=== PATIENT | female | born 1930 | race Caucasian/White ===

== ENCOUNTER 2017-04-14 06:07 | Emergency (ER) | payer MEDICARE ==
[~2017-04-14] VITALS: Ht 157.5 cm; Wt 62.0 kg
[~2017-04-14 06:07] MED LIST: ATOR10TA PO; ECOT81TA2 PO; LISI-357 PO; METO25CR PO
[2017-04-14 06:10] VITALS: BP 191/96; PULSE 100; RESP 20; TEMP 96.3; O2SAT 97
--- NOTE | 2017-04-14 06:22 | PD ---
HPI Chief Complaint: Fall Time Seen by Provider: 06:13 Travel History International Travel<30 days: No Contact w/Intl Traveler<30days: No Traveled to known affect area: No History of Present Illness HPI Patient is an 86-year-old female presents emergency department for evaluation after a fall. Patient brought in by EMS on a scoop stretcher, according to EMS the patient's son whom the patient lives with at home reported that the patient rolled out of bed and hit her head on the nightstand, unknown loss of consciousness. The patient has a history of Alzheimer's dementia extremely limiting history. PFSH Past Medical History Arthritis: Yes Asthma: No Blood Disorders: No Heart Rhythm Problems: No Cancer: No Cardiovascular Problems: Yes High Cholesterol: Yes Chemotherapy: No Chest Pain: Yes Congestive Heart Failure: Yes COPD: No Cerebrovascular Accident: Yes (ALSO BELLS PALSEY) Diabetes: No Endocrine: No Gastrointestinal Disorders: No Genitourinary: No Headaches: Yes Hypertension: Yes Immune Disorder: No Implanted Vascular Access Dvce: No Kidney Stones: No Musculoskeletal: Yes Neurologic: Yes (CVA, JOE'S PALSY) Psychiatric: No Reproductive: Yes (HYSTERECTOMY, X 2) Respiratory: No Immunizations Current: Yes Migraines: Yes Myocardial Infarction: No Radiation Therapy: No Renal Failure: No Seizures: No Sleep Apnea: Yes Thyroid Disease: No ?: Not Past Surgical History Abdominal Surgery: Yes (HERNIA SURGERY) AICD: No Cardiac Surgery: No Ear Surgery: No Endocrine Surgery: No Eye Surgery: No Genitourinary Surgery: No Gynecologic Surgery: Yes (HYSTERCTOMY AND 2 C SECTIONS) Joint Replacement: No Neurologic Surgery: No Oral Surgery: No Pacemaker: No Thoracic Surgery: No Other Surgery: Yes Social History Alcohol Use: No Tobacco Use: No Substance Use: No Allergies-Medications (Allergen,Severity, Reaction): Coded Allergies: No Known Allergies (Verified , 04/16/17) Reported Meds & Prescriptions Reported Meds & Active Scripts Active Tylenol-Codeine #3 (Acetaminophen-Codeine) 300-30 mg Tab 1 Tab PO Q4H PRN Reported Aspirin 81 Mg Chew 81 Mg CHEW DAILY Review of Systems ROS Limitations: Other: (dementia) Physical Exam Narrative GENERAL: Well-developed well-nourished, bloody pajama top and bloody hair on the left side of her face. SKIN: Laceration as below, there is some healing bruising to the left breast. HEAD: No george signs no raccoons eyes, 1-2 cm laceration superficial over the left forehead, no active bleeding.. Normocephalic. EYES: Pupils equal and round. No scleral icterus. No injection or drainage. ENT: No nasal bleeding or discharge. Mucous membranes pink and moist. NECK: Trachea midline. No JVD. CARDIOVASCULAR: Regular rate and rhythm. No murmur appreciated. RESPIRATORY: No accessory muscle use. Clear to auscultation. Breath sounds equal bilaterally. GASTROINTESTINAL: Abdomen soft, non-tender, nondistended. Hepatic and splenic margins not palpable. MUSCULOSKELETAL: No midline CT or L-spine tenderness, minimal tenderness left hip. Pelvis stable. Extremities appear atraumatic. No obvious deformities. No clubbing. No cyanosis. No edema. NEUROLOGICAL: Awake and alert. No obvious cranial nerve deficits. Moves all 4 extremities but does not follow commands. Able to communicate that it hurts when I touch her left hip. PSYCHIATRIC: Demented. Data Data Last Documented VS Vital Signs Date Time Temp Pulse Resp B/P Pulse Ox O2 Delivery O2 Flow Rate FiO2 04/14/17 14:13 78 20 136/75 04/14/17 06:[address] Brain W/O Iv Contrast(Rout) (04/14/17 ) Ct Cerv Spine W/O Contrast (04/14/17 ) Hip, Uni(Ap&Lat) W Ap Pelvis (04/14/17 ) Chest, Single Ap (04/14/17 ) MDM Medical Decision Making Medical Screen Exam Complete: Yes Emergency Medical Condition: Yes Differential Diagnosis Fall, closed head injury, neck injury, intracranial hematoma, hip injury, chest injury. Narrative Course Patient roomed in ER, xray workup ordered. Discussed with Dr. Thompson at 0700 shift change to follow up images and disposition appropriately. Scripts Acetaminophen-Codeine (Tylenol-Codeine #3)300-30 mg Tab1 Tab PO Q4H PRN (PAIN) # 15 TAB Ref 0 Prov:Latia Thompson MD 04/14/17 Dexter Christensen MD Apr 14, 2017 06:22
[2017-04-14] MEDS ORDERED: ASPI81CH CHEW (06:23)
--- NOTE | 2017-04-14 06:54 | RADRPT ---
EXAM DATE/TIME: 04/14/2017 06:31 [facility] COMPARISON: CHEST SINGLE AP, July 21, 2016, 18:58. INDICATIONS : Fall. Left chest pain. MEDICAL HISTORY : None. SURGICAL HISTORY : None. ENCOUNTER: Initial ACUITY: 1 day PAIN SCORE: 5/10 LOCATION: Bilateral chest FINDINGS: A single view of the chest demonstrates the lungs to be symmetrically aerated with punctate old granu lomatous calcifications bilaterally. No confluent infiltrate. Multiple lateral left sided rib fractur es. Heart size is borderline prominent but well compensated. Right humeral head is "high riding" characteristic of a chronic rotator cuff injury. There appears to be chronic dislocation of the left shoulder. CONCLUSION: 1. Multiple left-sided lateral rib fractures in the lower hemithorax. No acute infiltrate or pneumoth orax. 2. Old granulomatous disease bilaterally. 3. Probable chronic rotator cuff injury of the right shoulder. Chronic dislocation of the left should er. Chava Dumont MD on April 14, 2017 at 6:48 Board Certified Radiologist. This report was verified electronically.
--- NOTE | 2017-04-14 06:55 | RADRPT ---
EXAM DATE/TIME: 04/14/2017 06:32 [facility] COMPARISON: No previous studies available for comparison. INDICATIONS : Fall. Left hip pain. MEDICAL HISTORY : None. SURGICAL HISTORY : None. ENCOUNTER: Initial ACUITY: 1 day PAIN SCORE: 8/10 LOCATION: Left pelvis FINDINGS: Examination of the left hip was performed with AP Pelvis. The primary and secondary trabecular patte rn of the femoral neck is intact. The hip joint is of normal width without significant sclerosis or bony hypertrophy. The acetabulum is grossly intact. Extensive granulomatous type calcification of th e regional vasculature. CONCLUSION: 1. No acute fracture. 2. Extensive granulomatous type calcification of the regional vasculature. Chava Dumont MD on April 14, 2017 at 6:53 Board Certified Radiologist. This report was verified electronically.
--- NOTE | 2017-04-14 06:58 | RADRPT ---
EXAM DATE/TIME: 04/14/2017 06:39 [facility] COMPARISON: CT BRAIN W/O CONTRAST, February 25, 2016, 1:18. INDICATIONS : Trauma, fall. RADIATION DOSE: 29.55 CTDIvol (mGy) MEDICAL HISTORY : Non-responsive. SURGICAL HISTORY : Non-responsive. ENCOUNTER: Initial ACUITY: 1 day PAIN SCALE: Non-responsive LOCATION: cranial TECHNIQUE: Multiple contiguous axial images were obtained of the head. Using automated exposure control and adj ustment of the mA and/or kV according to patient size, radiation dose was kept as low as reasonably a chievable to obtain optimal diagnostic quality images. DICOM format image data is available electro nically for review and comparison. FINDINGS: CEREBRUM: Severe but stable central and cortical atrophy. Periventricular attenuation is characteristic of mode rately severe small vessel ischemic demyelination. Old lacunar type infarct in the right thalamus. No thing acute. POSTERIOR FOSSA: The cerebellum and brainstem are intact. The 4th ventricle is midline. The cerebellopontine angle i s unremarkable. EXTRACRANIAL: The visualized portion of the orbits is intact. SKULL: The calvaria is intact. No evidence of skull fracture. Small cephalhematoma over the left frontopari etal region. CONCLUSION: 1. Small cephalhematoma over the left frontoparietal region. No fracture. 2. Stable chronic changes with cortical and central atrophy, periventricular small vessel ischemic de myelination and old right thalamic lacunar type infarct. Chava Dumont MD on April 14, 2017 at 6:54 Board Certified Radiologist. This report was verified electronically.
--- NOTE | 2017-04-14 07:12 | RADRPT ---
EXAM DATE/TIME: 04/14/2017 06:39 [facility] COMPARISON: No previous studies available for comparison. INDICATIONS : Trauma, fall. RADIATION DOSE: 12.64 CTDIvol (mGy) MEDICAL HISTORY : Non-responsive. SURGICAL HISTORY : Non-responsive. ENCOUNTER: Initial ACUITY: 1 day PAIN SCALE: Non-responsive LOCATION: neck TECHNIQUE: Volumetric scanning of the cervical spine was performed. Multiplanar reconstructions in the sagittal, coronal and oblique axial planes were performed. Using automated exposure control and adjustment o f the mA and/or kV according to patient size, radiation dose was kept as low as reasonably achievable to obtain optimal diagnostic quality images. DICOM format image data is available electronically f or review and comparison. FINDINGS: VERTEBRAE: Normal vertebral body height. Moderate intervertebral disc space narrowing at C4-5, C5-6 and C6-7. De generative facet disease mid cervical spine. ALIGNMENT: No evidence of subluxation. C2-C3: The bony spinal canal is normal in size. No evidence of disc bulge or herniation. The neural forami na are bilaterally patent. C3-C4: The bony spinal canal is normal in size. No evidence of disc bulge or herniation. The neural forami na are bilaterally patent. C4-C5: The bony spinal canal is normal in size. No evidence of disc bulge or herniation. The neural forami na are bilaterally patent. C5-C6: The bony spinal canal is normal in size. No evidence of disc bulge or herniation. The neural forami na are bilaterally patent. C6-C7: The bony spinal canal is normal in size. No evidence of disc bulge or herniation. The neural forami na are bilaterally patent. C7-T1: The bony spinal canal is normal in size. No evidence of disc bulge or herniation. The neural forami na are bilaterally patent. CONCLUSION: Degenerative disc and facet disease throughout the mid cervical spine. No evidence of endplate fractu re is identified. Cord is normal in shape. Baldo Camarena MD on April 14, 2017 at 7:07 Board Certified Radiologist. This report was verified electronically.
--- NOTE | 2017-04-14 07:24 | PD ---
Physical Exam Date Seen by Provider: Apr 14, 2017 Time Seen by Provider: 07:10 Narrative Care assumed from Dr. Christensen at 7 AM pending radiographic studies. Patient has a 2 cm laceration on the left side of her forehead. She is awake and alert but confused. She has no idea why she is here. Her lungs have good air movement throughout. Data Data Last Documented VS Vital Signs Date Time Temp Pulse Resp B/P Pulse Ox O2 Delivery O2 Flow Rate FiO2 04/14/17 06:10 96.3 100 20 191/[address] Brain W/O Iv Contrast(Rout) (04/14/17 ) Ct Cerv Spine W/O Contrast (04/14/17 ) Hip, Uni(Ap&Lat) W Ap Pelvis (04/14/17 ) Chest, Single Ap (04/14/17 ) MDM Supervised Visit with EDEN: No Narrative Course Last Impressions Hip and Pelvis X-Ray 04/14/17 0000 Signed Impressions: Service Date/Time: Friday, April 14, 2017 06:32 - CONCLUSION: 1. No acute fracture. 2. Extensive granulomatous type calcification of the regional vasculature. Chava Dumont MD Head CT 04/14/17 0000 Signed Impressions: Service Date/Time: Friday, April 14, 2017 06:39 - CONCLUSION: 1. Small cephalhematoma over the left frontoparietal region. No fracture. 2. Stable chronic changes with cortical and central atrophy, periventricular small vessel ischemic demyelination and old right thalamic lacunar type infarct. Chava Dumont MD Chest X-Ray 04/14/17 0000 Signed Impressions: Service Date/Time: Friday, April 14, 2017 06:31 - CONCLUSION: 1. Multiple left-sided lateral rib fractures in the lower hemithorax. No acute infiltrate or pneumothorax. 2. Old granulomatous disease bilaterally. 3. Probable chronic rotator cuff injury of the right shoulder. Chronic dislocation of the left shoulder. Chava Dumont MD Cervical Spine CT 04/14/17 0000 Signed Impressions: Service Date/Time: Friday, April 14, 2017 06:39 - CONCLUSION: Degenerative disc and facet disease throughout the mid cervical spine. No evidence of endplate fracture is identified. Cord is normal in shape. Baldo Camarena MD This patient presumably has acute left rib fractures. She does not appear to be having any respiratory distress related to rib fractures. It appeared to be too terribly uncomfortable. Procedures Procedure Narrative LACERATION LOCATION: Forehead LENGTH: 2 cm NUMBER OF STITCHES/ROSA MARIA: 3 Steri-Strips REPAIR: The area of the laceration was prepped with saline. The wound was copiously irrigated and explored without evidence of foreign body, tendon injury or neurovascular injury. The wound was closed using Steri-Strips. Patient tolerated the procedure well. Diagnosis Primary Impression: Forehead laceration Qualified Code: S01.81XA - Forehead laceration, initial encounter Additional Impressions: Scalp contusion Left rib fracture Qualified Code: S22.42XA - Closed fracture of multiple ribs of left side, initial encounter Patient Instructions: Facial Laceration (ED), General Instructions, Rib Fracture (DC) Scripts Acetaminophen-Codeine (Tylenol-Codeine #3)300-30 mg Tab1 Tab PO Q4H PRN (PAIN) # 15 TAB Ref 0 Prov:Latia Thompson MD 04/14/17 Disposition: 01 DISCHARGE HOME Condition: Stable Latia Thompson MD Apr 14, 2017 07:24
[2017-04-14] MEDS ORDERED: TYLETAB34 PO (07:29)
[2017-04-14 14:13] VITALS: BP 136/75
== END 2017-04-14 14:14 | disposition home or self-care (01) ==
LOC: NEPC 06:07
DX: S01.81XA Laceration without foreign body of other part of head, initial encounter (principal); S22.42XA Multiple fractures of ribs, left side, initial encounter for closed fracture; W06.XXXA Fall from bed, initial encounter; E78.00 Pure hypercholesterolemia, unspecified; I50.9 Heart failure, unspecified; Z86.73 Personal history of transient ischemic attack (TIA), and cerebral infarction without residual deficits; I11.0 Hypertensive heart disease with heart failure; G47.30 Sleep apnea, unspecified; G30.9 Alzheimer's disease, unspecified; F02.80 Dementia in other diseases classified elsewhere, unspecified severity, without behavioral disturbance, psychotic disturbance, mood disturbance, and anxiety
CPT/HCPCS: 70450; 71010; 72125; 73502; 99284

== ENCOUNTER 2017-04-16 18:53 | Emergency (ER) | payer MEDICARE ==
[~2017-04-16] VITALS: Ht 157.5 cm; Wt 60.0 kg
[~2017-04-16 18:53] MED LIST changes: +ASPI81CH CHEW; -ATOR10TA PO; -ECOT81TA2 PO; -LISI-357 PO; -METO25CR PO; +TYLETAB34 PO
[2017-04-16 19:20] VITALS: BP 141/89; PULSE 67; RESP 18; TEMP 98.2; O2SAT 100
--- NOTE | 2017-04-16 19:26 | PD ---
HPI Chief Complaint: Pain: Acute or Chronic Time Seen by Provider: 19:26 Travel History International Travel<30 days: No Contact w/Intl Traveler<30days: No Traveled to known affect area: No History of Present Illness HPI 86-year-old female with history of CAD, hypertension, dementia, CVA, presents to emergency department for evaluation of persistent thoracic spine pain. Patient had a fall 2 days ago. She was seen and evaluated in the emergency department. She was diagnosed with full left lateral rib fractures. Patient was discharged home. Patient presents today for persistent pain stating that it is in her back. Denies any new injury. No chest or tightness. No difficulty breathing. Pain does not radiate anywhere. No other symptoms to report. PFSH Past Medical History Alzheimer's Disease: Yes (PER EMS) Arthritis: Yes Asthma: No Blood Disorders: No Heart Rhythm Problems: No Cancer: No Cardiovascular Problems: Yes High Cholesterol: Yes Chemotherapy: No Chest Pain: Yes Congestive Heart Failure: Yes COPD: No Cerebrovascular Accident: Yes (ALSO BELLS PALSEY) Dementia: Yes (PER EMS) Diabetes: No Diminished Hearing: Yes ([place]) Endocrine: No Gastrointestinal Disorders: No Genitourinary: No Headaches: Yes Hypertension: Yes Immune Disorder: No Implanted Vascular Access Dvce: No Kidney Stones: No Musculoskeletal: Yes (HX LOWER BACK PAIN PER EMS) Neurologic: Yes (CVA, JOE'S PALSY) Psychiatric: No Reproductive: Yes (HYSTERECTOMY, X 2) Respiratory: No Immunizations Current: Yes Migraines: Yes Myocardial Infarction: No Radiation Therapy: No Renal Failure: No Seizures: No Sleep Apnea: Yes Thyroid Disease: No Past Surgical History Abdominal Surgery: Yes (HERNIA SURGERY) AICD: No Cardiac Surgery: No Ear Surgery: No Endocrine Surgery: No Eye Surgery: No Genitourinary Surgery: No Gynecologic Surgery: Yes (HYSTERCTOMY AND 2 C SECTIONS) Joint Replacement: No Neurologic Surgery: No Oral Surgery: No Pacemaker: No Thoracic Surgery: No Other Surgery: Yes Social History Alcohol Use: No (UNABLE TO ASSESS) Tobacco Use: No (UNABLE TO ASSESS) Substance Use: No (UNABLE TO ASSESS) Allergies-Medications (Allergen,Severity, Reaction): Coded Allergies: No Known Allergies (Verified , 04/16/17) Reported Meds & Prescriptions Reported Meds & Active Scripts Active Tylenol-Codeine #3 (Acetaminophen-Codeine) 300-30 mg Tab 1 Tab PO Q4H PRN Reported Aspirin 81 Mg Chew 81 Mg CHEW DAILY Review of Systems ROS Limitations: Poor Historian Except as stated in HPI: all other systems reviewed are Neg Physical Exam Exam Limitations: Poor Historian Narrative GENERAL: Thin elderly female patient, hard of hearing, poor historian, pleasant , in no acute distress SKIN: Focused skin assessment warm/dry. HEAD: Ecchymosis, scalp hematoma in the left forehead. Normocephalic. EYES: Pupils equal and round. No scleral icterus. No injection or drainage. ENT: No nasal bleeding or discharge. Mucous membranes pink and moist. NECK: Trachea midline. No JVD. No cervical spine tenderness. CARDIOVASCULAR: Regular rate and rhythm. RESPIRATORY: No accessory muscle use. Diminished, likely due to poor inspiratory effort. Breath sounds equal bilaterally. GASTROINTESTINAL: Abdomen soft, non-tender, nondistended. Hepatic and splenic margins not palpable. MUSCULOSKELETAL: No obvious deformities. No clubbing. No cyanosis. No edema. Tenderness elicited to palpation of the distal thoracic spine. NEUROLOGICAL: Awake and alert. No obvious cranial nerve deficits. Motor grossly within normal limits. Normal speech. Data Data Last Documented VS Vital Signs Date Time Temp Pulse Resp B/P Pulse Ox O2 Delivery O2 Flow Rate FiO2 04/16/17 21:11 62 18 138/87 100 Room Air 04/16/17 19:[address] Thor Spine W/O Contrast (04/16/17 ) Ct Lumb Spine W/O Contrast (04/16/17 ) Iv Access Insert/Monitor (04/16/17 19:25) Morphine Inj (Morphine Inj) (04/16/17 20:15) Ondansetron Inj (Zofran Inj) (04/16/17 20:15) Morphine Inj (Morphine Inj) (04/16/17 20:50) MDM Medical Decision Making Medical Screen Exam Complete: Yes Emergency Medical Condition: Yes Medical Record Reviewed: Yes Differential Diagnosis Fracture versus sprain versus discogenic pain versus osteoarthritis Narrative Course 86-year-old female presents to emergency department for evaluation of persistent back pain since a fall 2 days ago. Patient does have midline distal thoracic spine pain. She has no focal deficits or weakness. She is moving all extremities freely. Patient is treated for pain. Last Impressions Thoracic Spine CT 04/16/17 0000 Signed Impressions: Service Date/Time: Sunday, April 16, 2017 20:00 - CONCLUSION: Osteoporosis, negative for fracture. MRI could be used to exclude the subtle compression if indicated. Homero Jensen MD FACR Lumbar Spine CT 04/16/17 0000 Signed Impressions: Service Date/Time: Sunday, April 16, 2017 20:04 - CONCLUSION: Osteopenia with degenerative changes. Fracture is not appreciated. Homero Jensen MD FACR I have discussed the imaging studies with the patient, although I'm not convinced that she fully understands. Nursing staff has contacted family. Transportation will be here in the morning. Patient will be discharged at that time. Diagnosis Primary Impression: Back pain Qualified Code: M54.5 - Midline low back pain without sciatica, unspecified chronicity Additional Impression: Left rib fracture Qualified Code: S22.42XD - Closed fracture of multiple ribs of left side with routine healing, subsequent encounter Referrals: Primary Care Physician Patient Instructions: Back Pain (ED), General Instructions, Rib Fracture (ED) Additional Instructions: Ice and/or warm moist heat may help to alleviate symptoms Continue pain medication as already prescribed It is important that you take deep breaths to reduce risk of getting pneumonia Return to ED with acute worsening of symptoms Med/Other Pt SpecificInfo: No Change to Meds Disposition: 01 DISCHARGE HOME Condition: Stable Caitlyn Viramontes Apr 16, 2017 19:26
[2017-04-16] MEDS ORDERED: MORPHINE SULFATE 4 MG/ML INJ IV PUSH ONE (20:15)
[2017-04-16] MEDS ORDERED: ONDANSETRON HCL 4 MG/2 ML VIAL IV PUSH ONE (20:15)
[2017-04-16] MEDS ORDERED: MORPHINE SULFATE 8 MG/ML INJ ONE (20:50)
--- NOTE | 2017-04-16 21:00 | RADRPT ---
EXAM DATE/TIME: 04/16/2017 20:00 [facility] COMPARISON: No previous studies available for comparison. INDICATIONS : Patient fell 2 days ago, complains of upper and lower back pain. RADIATION DOSE: 19.03 CTDIvol (mGy) MEDICAL HISTORY : Alzheimer's Cardiovascular disease Hypertension. SURGICAL HISTORY : Hysterectomy. hernia repair ENCOUNTER: Initial ACUITY: 2 days PAIN SCALE: 5/10 LOCATION: upper back TECHNIQUE: Volumetric scanning of the thoracic spine was performed. Multiplanar reconstructions in the sagittal , coronal and oblique axial planes were performed. Using automated exposure control and adjustment o f the mA and/or kV according to patient size, radiation dose was kept as low as reasonably achievable to obtain optimal diagnostic quality images. DICOM format image data is available electronically f or review and comparison. FINDINGS: The vertebral bodies of the thoracic spine are in normal alignment without evidence of subluxation. Vertebral body height is maintained. No fractures are seen. Bones are severely osteoporotic. T1-T2: Normal. T2-T3: The thecal sac has a normal diameter. No evidence of disc bulge or protrusion. T3-T4: The thecal sac has a normal diameter. No evidence of disc bulge or protrusion. T4-T5: The thecal sac has a normal diameter. No evidence of disc bulge or protrusion. T5-T6: The thecal sac has a normal diameter. No evidence of disc bulge or protrusion. T6-T7: The thecal sac has a normal diameter. No evidence of disc bulge or protrusion. T7-T8: The thecal sac has a normal diameter. No evidence of disc bulge or protrusion. T8-T9: The thecal sac has a normal diameter. No evidence of disc bulge or protrusion. T9-T10: The thecal sac has a normal diameter. No evidence of disc bulge or protrusion. T10-T11: The thecal sac has a normal diameter. No evidence of disc bulge or protrusion. T11-T12: The thecal sac has a normal diameter. No evidence of disc bulge or protrusion. T12-L1: The thecal sac has a normal diameter. No evidence of disc bulge or protrusion. CONCLUSION: Osteoporosis, negative for fracture. MRI could be used to exclude the subtle allan natalia if indicated. Homero Jensen MD FACR on April 16, 2017 at 20:57 Board Certified Radiologist. This report was verified electronically.
--- NOTE | 2017-04-16 21:02 | RADRPT ---
EXAM DATE/TIME: 04/16/2017 20:04 [facility] COMPARISON: No previous studies available for comparison. INDICATIONS : Patient fell 2 days ago,complains of upper and lower back pain. RADIATION DOSE: 19.03 CTDIvol (mGy) MEDICAL HISTORY : Cardiovascular disease. Hypertension. Alzheimers. SURGICAL HISTORY : Hysterectomy. hernia repair ENCOUNTER: Initial ACUITY: 2 days PAIN SCALE: 5/10 LOCATION: low back TECHNIQUE: Volumetric scanning of the lumbar spine was performed. Multiplanar reconstructions in the sagittal, coronal and oblique axial planes were performed. Using automated exposure control and adjustment of the mA and/or kV according to patient size, radiation dose was kept as low as reasonably achievable t o obtain optimal diagnostic quality images. DICOM format image data is available electronically for review and comparison. FINDINGS: VERTEBRAE: Normal vertebral body height. Bones are severely osteoporotic. ALIGNMENT: No evidence of subluxation. T12-L1: There is moderate loss of disc space height evident. L1-L2: The thecal sac has a normal diameter. No evidence of disc bulge or protrusion. The neural foramina are patent bilaterally. L2-L3: The thecal sac has a normal diameter. No evidence of disc bulge or protrusion. The neural foramina are patent bilaterally. L3-L4: The thecal sac has a normal diameter. No evidence of disc bulge or protrusion. The neural foramina are patent bilaterally. L4-L5: There is moderate loss of disc space height without disc herniation. L5-S1: There is moderate loss of disc space height. CONCLUSION: Osteopenia with degenerative changes. Fracture is not appreciated. Homero Jensen MD FACR on April 16, 2017 at 20:59 Board Certified Radiologist. This report was verified electronically.
[2017-04-16 21:11] VITALS: BP 138/87; PULSE 62; RESP 18; O2SAT 100
[2017-04-17 07:00] VITALS: BP 130/64; PULSE 60; RESP 14; O2SAT 95
[2017-04-17 08:00] VITALS: BP 144/67; PULSE 62; RESP 16; TEMP 97.8; O2SAT 98
== END 2017-04-17 10:13 | disposition home or self-care (01) ==
LOC: NEPC 18:53 → NEPD 04-17 10:13
DX: M54.6 Pain in thoracic spine (principal); S22.42XD Multiple fractures of ribs, left side, subsequent encounter for fracture with routine healing; I25.10 Atherosclerotic heart disease of native coronary artery without angina pectoris; I10 Essential (primary) hypertension; F03.90 Unspecified dementia, unspecified severity, without behavioral disturbance, psychotic disturbance, mood disturbance, and anxiety; G30.9 Alzheimer's disease, unspecified; I50.9 Heart failure, unspecified; Z86.73 Personal history of transient ischemic attack (TIA), and cerebral infarction without residual deficits; X58.XXXD Exposure to other specified factors, subsequent encounter
CPT/HCPCS: 72128; 72131; 96374; 96375; 99285; J2270; J2405